=== PATIENT | female | born 1970 | race Caucasian/White ===

== ENCOUNTER 2022-02-12 21:58 | Inpatient (IN) | payer BC ==
[2022-02-12] MEDS ORDERED: cefTRIAXone\\ROCEPHIN 2 GM VIAL ONE (23:44)
[2022-02-12] MEDS ORDERED: Acetaminophen 325 MG TAB ONE (23:44)
[2022-02-12] MEDS ORDERED: Azithromycin 500 MG VIAL ONE (23:44)
[2022-02-13 00:29] LABS: Bilirubin Neg (Negative); Blood, Urine 10 (Negative); Clarity Slightly Cloudy (Clear); Glucose, Urine (Dipstick) >=1000 mg/dL (Negative); Ketone, Urine 50 mg/dL (Negative); Leukocyte Negative (Negative); Nitrite Negative (Negative); Protein, Urine (Dipstick) 100 mg/dl (Neg-Trace); Urobilinogen Normal mg/dL (Less than 2)
[2022-02-13 00:38] LABS: #Eosinphils 0.1 10x3/uL (0.0-0.5); #Monocytes 0.6 10x3/uL (0.0-1.1); #Neutrophils 7.6 10x3/uL (1.5-8.4); %Basophils 0.4 % (0.0-2.0); %Eosinophils 0.8 % (0.0-6.0); %Lymphocytes 16.4 % (18.0-47.0); %Monocytes 6.1 % (0.0-10.0); %Neutrophils 75.8 % (40.0-75.0); Mean Corpuscular HGB CONC 35.9 g/dL (32.0-36.0); Mean Corpuscular Hemoglobin 32.7 pg (27.0-33.0); Mean Platelet Volume 10.7 fl (7.4-10.4); Platelet Count 296 10x3/uL (150-450); RBC Distribution Width 13.2 % (11.5-14.5); White Blood Cell (WBC) Count 10.1 10x3/uL (3.5-10.5)
[2022-02-13 00:39] LABS: Bacteria/HPF 2+ HPF (None Seen); Mucous/LPF 1+ LPF (<2+); RBC/HPF 0-3 HPF (0-3); WBC/HPF 0-3 HPF (0-3); Yeast-Budding 2+ HPF (None Seen)
[2022-02-13 00:45] LABS: ALT (SGPT) 36 U/L (8-55); AST (SGOT) 27 U/L (5-34); Alkaline Phosphatase 103 U/L (40-110); Anion Gap 18 mmol/L (10-20); BUN (Urea Nitrogen) 12 mg/dL (9.8-20.1); Bilirubin, Total 0.4 mg/dL (0.2-1.2); Calc. Creatinine Clearance 0 mL/min (70-130); Calcium 9.3 mg/dL (7.8-10.44); Carbon Dioxide 21 mmol/L (22-29); Chloride 98 mmol/L (98-107); Estimated GFR 83; Globulin 3.6 g/dL (2.4-3.5); Glucose 219 mg/dL (70-105); Potassium 4.2 mmol/L (3.5-5.1); Protein, Total 7.6 g/dL (6.0-8.3); Sodium 133 mmol/L (136-145)
[2022-02-13 01:19] LABS: SARS-CoV-2 NAA Rapid Test Not Detected (NotDetected)
[2022-02-13] MEDS ORDERED: guaiFENesin/Codeine Phosphate 100 mg/10 mg 5 ml UD Cup ONE (04:43)
[2022-02-13] MEDS ORDERED: guaiFENesin/Codeine Phosphate 100 mg/10 mg 5 ml UD Cup PO SCH (04:45)
[2022-02-13] MEDS ORDERED: Calcium Carbonate 500 MG ChewTAB PO PRN (05:45)
[2022-02-13] MEDS ORDERED: Senokot S 8.6-50 MG TAB PO PRN (05:45)
[2022-02-13] MEDS ORDERED: Dextrose 50% Abboject 50 ML SYRINGE SLOW IVP PRN (05:45)
[2022-02-13] MEDS ORDERED: Guaifenesin DM 100-10/5 ML UDCUP PO PRN (05:45)
[2022-02-13] MEDS ORDERED: Acetaminophen 325 MG TAB PO PRN (05:45)
[2022-02-13] MEDS ORDERED: Ondansetron PF 4 MG/2 ML Vial IVP PRN (05:45)
[2022-02-13] MEDS ORDERED: Zolpidem Tartrate 5 MG TAB PO PRN (05:45)
[2022-02-13] MEDS ORDERED: Dextrose 5% in Water 1,000 ML IV PRN (05:45)
[2022-02-13] MEDS ORDERED: guaiFENesin/Codeine Phosphate 100 mg/10 mg 5 ml UD Cup PO PRN (05:47)
[2022-02-13] MEDS ORDERED: ALPRAZolam 0.5 MG TAB PO PRN (05:53)
[2022-02-13] MEDS ORDERED: predniSONE 20 MG TAB PO SCH (06:00)
[2022-02-13] MEDS ORDERED: Lactated Ringer's 1,000 ML IV SCH (06:00)
[2022-02-13] MEDS ORDERED: Albuterol Sulfate 2.5 mg/3 ml Neb NEB PRN (06:04)
[2022-02-13] MEDS ORDERED: predniSONE 20 MG TAB ONE (06:14)
[2022-02-13] MEDS: Levothyroxine Sodium 75 MCG TAB PO SCH (06:24)
[2022-02-13 07:51] VITALS: BMI 39.9
[2022-02-13] MEDS ORDERED: Ondansetron PF 4 MG/2 ML Vial ONE (07:54)
[2022-02-13] MEDS ORDERED: Acetaminophen 325 MG TAB ONE (07:54)
[2022-02-13] MEDS ORDERED: Benzonatate 100 MG CAP ONE (08:34)
[2022-02-13] MEDS ORDERED: Oxymetazoline HCl 0.05% ( 15 ML ) ONE (08:34)
[2022-02-13] MEDS ORDERED: Lisinopril 10 MG TAB ONE (08:34)
[2022-02-13] MEDS ORDERED: Enoxaparin Sodium 40 MG/0.4 ML SYRINGE ONE (08:35)
[2022-02-13] MEDS ORDERED: Piperacillin/Tazobactam 3.375 GM VIAL ONE (08:35)
[2022-02-13] MEDS: Oxymetazoline HCl 0.05% ( 15 ML ) NASAL SCH ×2 (08:50→21:04)
[2022-02-13 08:58] LABS: #Monocytes 0.3 10x3/uL (0.0-1.1); #Neutrophils 8.4 10x3/uL (1.5-8.4); %Basophils 0.3 % (0.0-2.0); %Eosinophils 0.2 % (0.0-6.0); %Neutrophils 85.9 % (40.0-75.0); Mean Corpuscular HGB CONC 35.8 g/dL (32.0-36.0); Mean Corpuscular Hemoglobin 32.5 pg (27.0-33.0); Mean Corpuscular Volume 90.7 fl (81.6-98.3); Mean Platelet Volume 10.4 fl (7.4-10.4); Platelet Count 253 10x3/uL (150-450); RBC Distribution Width 13.2 % (11.5-14.5); Red Blood Cell (RBC) Count 4.31 10x6/uL (3.90-5.03); White Blood Cell (WBC) Count 9.8 10x3/uL (3.5-10.5)
[2022-02-13] MEDS ORDERED: Doxycycline 100 MG in Sodium Chloride 0.9% 100 ML IVPB SCH (09:00)
[2022-02-13] MEDS ORDERED: Cefepime 2 GM in Sodium Chloride 0.9% 100 ML IVPB SCH (09:00)
[2022-02-13] MEDS ORDERED: Ibuprofen 200 MG TAB ONE (09:07)
[2022-02-13] MEDS: Lisinopril 10 MG TAB PO SCH (09:20)
[2022-02-13] MEDS: Benzonatate 100 MG CAP PO SCH ×3 (09:20→20:59)
[2022-02-13] MEDS: Empagliflozin 10 MG TAB PO SCH (09:20)
[2022-02-13 09:21] LABS: ALT (SGPT) 33 U/L (8-55); Albumin 3.4 g/dL (3.5-5.0); Alkaline Phosphatase 87 U/L (40-110); Anion Gap 14 mmol/L (10-20); BUN (Urea Nitrogen) 8 mg/dL (9.8-20.1); Bilirubin, Total 0.4 mg/dL (0.2-1.2); Calc. Creatinine Clearance 153 mL/min (70-130); Calcium 8.2 mg/dL (7.8-10.44); Carbon Dioxide 22 mmol/L (22-29); Chloride 100 mmol/L (98-107); Estimated GFR 98; Globulin 3.5 g/dL (2.4-3.5); Glucose 208 mg/dL (70-105); Potassium 4.4 mmol/L (3.5-5.1); Protein, Total 6.9 g/dL (6.0-8.3); Sodium 132 mmol/L (136-145)
[2022-02-13] MEDS: Enoxaparin Sodium 40 MG/0.4 ML SYRINGE SC SCH (09:30)
[2022-02-13] MEDS: Piperacillin/Tazobactam 3.375 GM in Sodium Chloride 0.9% 100 ML IVPB SCH ×2 (09:35→18:19)
[2022-02-13 09:38] LABS: AST (SGOT) 22 U/L (5-34); Magnesium 1.6 mg/dL (1.6-2.6); Phosphorus 2.2 mg/dL (2.3-4.7)
[2022-02-13 10:16] LABS: Legionella Urinary Ag Negative (Negative); Strep pneumo Urine Ag NEGATIVE (NEGATIVE)
[2022-02-13] MEDS ORDERED: Iopamidol 370 76% 100 ML VIAL ONE (11:36)
[2022-02-13 12:54] LABS: Hemoglobin A1c 9.7 % (4.0-6.0)
[2022-02-13] MEDS ORDERED: Electrolyte Replacement Protocol 1 EACH FS PRN (15:09)
[2022-02-13] MEDS: guaiFENesin ER 600 MG TAB PO SCH ×2 (16:26→21:01)
[2022-02-13] MEDS ORDERED: Sodium Chloride 0.9% 100 ML ONE (18:23)
[2022-02-13] MEDS ORDERED: Magnesium 2 GM/50 ML(in water) 2 GM in Premix Bag 1 BAG IVPB SCH (20:00)
[2022-02-13] MEDS ORDERED: Ibuprofen 400 MG TAB PO SCH (20:15)
[2022-02-13] MEDS: methylPREDNISolone Sod Succ 40 MG VIAL IVP SCH (20:58)
[2022-02-13] MEDS: Atorvastatin Calcium 40 MG TAB PO SCH (20:59)
[2022-02-14] MEDS: Piperacillin/Tazobactam 3.375 GM in Sodium Chloride 0.9% 100 ML IVPB SCH ×3 (01:52→17:21)
[2022-02-14 04:54] LABS: MDiff Complete? YES; Mean Corpuscular HGB CONC 34.1 g/dL (32.0-36.0); Mean Corpuscular Hemoglobin 31.7 pg (27.0-33.0); Mean Platelet Volume 10.8 fl (7.4-10.4); Platelet Count 284 10x3/uL (150-450); RBC Distribution Width 13.3 % (11.5-14.5); Red Blood Cell (RBC) Count 4.73 10x6/uL (3.90-5.03); White Blood Cell (WBC) Count 7.9 10x3/uL (3.5-10.5)
[2022-02-14 05:00] LABS: Anion Gap 19 mmol/L (10-20); BUN (Urea Nitrogen) 15 mg/dL (9.8-20.1); Calc. Creatinine Clearance 138 mL/min (70-130); Calcium 8.9 mg/dL (7.8-10.44); Carbon Dioxide 19 mmol/L (22-29); Chloride 104 mmol/L (98-107); Estimated GFR 87; Glucose 233 mg/dL (70-105); Magnesium 2.6 mg/dL (1.6-2.6); Potassium 4.6 mmol/L (3.5-5.1); Sodium 137 mmol/L (136-145)
[2022-02-14] MEDS ORDERED: Azithromycin 500 MG in Sodium Chloride 0.9% 250 ML 250 ML IVPB SCH (06:00)
[2022-02-14] MEDS: Levothyroxine Sodium 75 MCG TAB PO SCH (06:03)
[2022-02-14] MEDS: HumaLOG 300 UNITS/3 ML VIAL SC PRN (06:03)
[2022-02-14 06:33] LABS: Band 3 % (5-11); Lymphocytes 12 % (21-51); Neutrophil 82 % (42-75); Reactive Lymphocytes 3 % (0-10)
[2022-02-14 06:34] LABS: Diff Comment (RBC Morph SCRN) NORMAL; Platelet Morphology Comment Appears Adequate
[2022-02-14] MEDS: Lisinopril 10 MG TAB PO SCH (11:22)
[2022-02-14] MEDS: Enoxaparin Sodium 40 MG/0.4 ML SYRINGE SC SCH (11:23)
[2022-02-14] MEDS: Benzonatate 100 MG CAP PO SCH ×3 (11:23→20:51)
[2022-02-14] MEDS: methylPREDNISolone Sod Succ 40 MG VIAL IVP SCH ×2 (11:23→20:51)
[2022-02-14] MEDS: Empagliflozin 10 MG TAB PO SCH (11:24)
[2022-02-14] MEDS: Oxymetazoline HCl 0.05% ( 15 ML ) NASAL SCH (11:24)
[2022-02-14] MEDS: guaiFENesin ER 600 MG TAB PO SCH ×2 (11:24→20:59)
[2022-02-14] MEDS ORDERED: traMADol HCl 50 MG TAB PO PRN (13:28)
[2022-02-14] MEDS: Atorvastatin Calcium 40 MG TAB PO SCH (20:51)
[2022-02-14] MEDS: Doxycycline 100 MG in Sodium Chloride 0.9% 100 ML IVPB SCH (20:51)
[2022-02-15] MEDS: Piperacillin/Tazobactam 3.375 GM in Sodium Chloride 0.9% 100 ML IVPB SCH ×2 (01:48→13:03)
[2022-02-15 04:22] LABS: Hemoglobin 14.8 g/dL (12.0-15.5); Mean Corpuscular HGB CONC 34.5 g/dL (32.0-36.0); Mean Corpuscular Hemoglobin 31.8 pg (27.0-33.0); Mean Corpuscular Volume 92.1 fl (81.6-98.3); Mean Platelet Volume 10.4 fl (7.4-10.4); Platelet Count 321 10x3/uL (150-450); RBC Distribution Width 13.4 % (11.5-14.5); Red Blood Cell (RBC) Count 4.66 10x6/uL (3.90-5.03); White Blood Cell (WBC) Count 10.5 10x3/uL (3.5-10.5)
[2022-02-15 04:23] LABS: MDiff Complete? YES
[2022-02-15 04:45] LABS: ALT (SGPT) 29 U/L (8-55); AST (SGOT) 19 U/L (5-34); Albumin 3.8 g/dL (3.5-5.0); Alkaline Phosphatase 80 U/L (40-110); Anion Gap 20 mmol/L (10-20); BUN (Urea Nitrogen) 25 mg/dL (9.8-20.1); Bilirubin, Total 0.4 mg/dL (0.2-1.2); Calc. Creatinine Clearance 123 mL/min (70-130); Calcium 9.3 mg/dL (7.8-10.44); Carbon Dioxide 17 mmol/L (22-29); Chloride 103 mmol/L (98-107); Estimated GFR 75; Globulin 3.3 g/dL (2.4-3.5); Glucose 297 mg/dL (70-105); Phosphorus 4.1 mg/dL (2.3-4.7); Potassium 4.6 mmol/L (3.5-5.1); Protein, Total 7.1 g/dL (6.0-8.3); Sodium 135 mmol/L (136-145)
[2022-02-15] MEDS: HumaLOG 300 UNITS/3 ML VIAL SC PRN (05:43)
[2022-02-15] MEDS: Levothyroxine Sodium 75 MCG TAB PO SCH (05:43)
[2022-02-15 06:24] LABS: Band 5 % (5-11); Lymphocytes 14 % (21-51); Monocytes 1 % (0-10); Neutrophil 78 % (42-75); Reactive Lymphocytes 2 % (0-10)
[2022-02-15 06:26] LABS: Diff Comment (RBC Morph SCRN) NORMAL; Platelet Morphology Comment Appears Adequate
[2022-02-15] MEDS ORDERED: Empagliflozin 25 MG TAB PO SCH (09:00)
[2022-02-15] MEDS ORDERED: methylPREDNISolone Sod Succ 40 MG VIAL IVP SCH (09:00)
[2022-02-15] MEDS: guaiFENesin ER 600 MG TAB PO SCH (10:07)
[2022-02-15] MEDS: Lisinopril 10 MG TAB PO SCH (10:10)
[2022-02-15] MEDS: Benzonatate 100 MG CAP PO SCH (10:12)
[2022-02-15] MEDS: Enoxaparin Sodium 40 MG/0.4 ML SYRINGE SC SCH (10:12)
[2022-02-15] MEDS: Doxycycline 100 MG in Sodium Chloride 0.9% 100 ML IVPB SCH (10:14)
[2022-02-15 12:14] VITALS: BP 132/75; TEMP 98.3
[2022-02-15] MEDS ORDERED: Cefdinir 300 MG CAP PO SCH ×2 (13:00→21:00)
== END 2022-02-15 13:45 | disposition home or self-care (01) | DRG 871 ==
LOC: CSHERS 21:58 → CSHERHOLD 02-13 06:09 → CSHTELE 02-13 11:32
PROVIDERS: ADMIT Student in an Organized Health Care Education/Training Program; ATTEND Internal Medicine
DX: A41.9 Sepsis, unspecified organism (principal); J12.9 Viral pneumonia, unspecified; J96.01 Acute respiratory failure with hypoxia; J15.9 Unspecified bacterial pneumonia; E66.01 Morbid (severe) obesity due to excess calories; R65.20 Severe sepsis without septic shock; I10 Essential (primary) hypertension; E11.9 Type 2 diabetes mellitus without complications; F41.9 Anxiety disorder, unspecified; F32.A Depression, unspecified; E78.5 Hyperlipidemia, unspecified; E86.0 Dehydration; K21.9 Gastro-esophageal reflux disease without esophagitis; G47.33 Obstructive sleep apnea (adult) (pediatric); E03.9 Hypothyroidism, unspecified; Z90.710 Acquired absence of both cervix and uterus; Z90.49 Acquired absence of other specified parts of digestive tract; Z79.899 Other long term (current) drug therapy; Z79.890 Hormone replacement therapy; E78.00 Pure hypercholesterolemia, unspecified; Z20.822 Contact with and (suspected) exposure to COVID-19; Z68.39 Body mass index [BMI] 39.0-39.9, adult
CPT/HCPCS: 36415; 36416; 71045; 71275; 80048; 80053; 81003; 81015; 83036; 83605; 83735; 83880; 84100; 84145; 85025; 87040; 87077; 87086; 87149; 87186; 87449; 87899; 93005; 93306; 94760; 96361; 96365; 96367; J0456; J0696; J1650; J1815; J2405; J2543; J2920; J3475; J3490; J7120; J7512; Q9967

== ENCOUNTER 2023-02-19 09:09 | Outpatient (CLI) | payer BC ==
[2023-02-19] MEDS ORDERED: Iopamidol 300 61% 100 ML VIAL FS ONE (10:33)
== END 2023-02-19 09:10 | disposition home or self-care (01) ==
LOC: CSHCT 09:09
PROVIDERS: ATTEND Obstetrics & Gynecology
DX: R10.32 Left lower quadrant pain (principal); Z87.442 Personal history of urinary calculi; N20.0 Calculus of kidney; N28.1 Cyst of kidney, acquired; K76.0 Fatty (change of) liver, not elsewhere classified; K57.30 Diverticulosis of large intestine without perforation or abscess without bleeding; Z90.710 Acquired absence of both cervix and uterus; K44.9 Diaphragmatic hernia without obstruction or gangrene
CPT/HCPCS: 74178; Q9967